=== PATIENT | male | born 2000 | race Two or more races ===

== ENCOUNTER 2025-06-05 16:28 | Emergency (ER) | payer MEDICAID, OTHER ==
[~2025-06-05] VITALS: Ht 177.8 cm; Wt 74.0 kg
--- NOTE | 2025-06-05 16:51 | ED.PDOC ---
History of Present Illness(SKN HPI Comments This is a 24-year-old male that comes in with a rash to the back of his right upper thigh that started four days ago.. Patient states that the rash is slowly been getting bigger and bigger in his very itchy and uncomfortable.. Patient states he is not sure what caused the rash but he has been using Aquaphor and scratching none of it has helped her he decided to come in for evaluations. Denies being any bit by anything, Chief Complaint: Rash Time Seen by MD: 16:43 History of Present Illness: Nurses Notes, Medications, Allergies Information Source: Patient Mode of Arrival: Ambulatory Severity: Mild Past Medical History PAST MEDICAL HISTORY: Denies Social History Smoker: Non-Smoker Alcohol: Denies ETOH Use Drugs: Marijuana Lives In: Home Integumetry: reports: rash All Other Systems: Reviewed and Negative Physical Exam General Appearance: No Apparent Distress, Normal HEENT: Normal ENT Inspection, PERRL/EOMI, Pharynx Normal, TMs Normal Neck: Limited Range of Motion, Non-Tender, Normal Inspection, Supple Respiratory: Lungs Clear, No Respiratory Distress, Normal Breath Sounds Cardiovascular: Regular Rate/Rhythm Breast Exam: Deferred Gastrointestinal: Non Tender, Normal Bowel Sounds, Soft Genitalia: Deferred Pelvic: Deferred Rectal: Deferred Extremities: Normal capillary refill, Normal range of motion Neurologic: Alert, Normal Affect, Normal Mood Cerebellar Function: Normal Reflexes: Normal Skin: Rash Lymphatic: No Adenopathy (Right posterior thigh is a large area with macular papular erythematous rash excoriated skin warm to touch. Now spreading to the arms) Was a procedure done? Was a procedure done?: No Differential Diagnosis (INTG) Differential Diagnosis: Abrasion X-Ray, Labs, Meds, VS Vital Signs Date Time Temp Pulse Resp B/P (MAP) Pulse Ox O2 Delivery O2 Flow Rate FiO2 06/05/25 16:30 98.7 105 20 115/77 96 98.7 X-Ray, Labs, Meds, VS Comment Patient seen and examined by me. Patient does have a rash at now has become cellulitic in nature. It is a large portion of his right leg. I will give him a shot of Decadron followed by prednisone and oral antibiotics. Time of 1ST Reevaluation: 16:54 Reevaluation 1ST: Improved Patient Education/Counseling: Diagnosis, Treatment, Prognosis, Need For Follow Up Family Education/Counseling: No Family Present SEPSIS Sepsis Screen Date sepsis recognized/suspect: Jun 05, 2025 Time Sepsis recognized/suspect: 1632 Recent Procedure: No On Antibiotic Therapy: No Respiratory Rate >20: No Heart Rate >90: Yes Temp<36 C (96.8 F) or >38.3 C: No SBP <90 or MAP <65 mmHG: No New Acute Mental Status Change: No Is the patient on CPAP, BIPAP,: No Vital Signs Date Time Temp Pulse Resp B/P (MAP) Pulse Ox O2 Delivery O2 Flow Rate FiO2 06/05/25 16:30 98.7 105 20 115/77 96 98.7 Departure 1 Departure Time of Disposition: 17:02 Impression: Primary Impression: Cellulitis Additional Impression: Allergic reaction Qualified Codes: T78.40XA - Allergy, unspecified, initial encounter Disposition: HOME / SELF CARE / HOMELESS Condition: Good e-Prescriptions Triamcinolone Acetonide (Triamcinolone Acetonide) 0.1 % Oin 1 APPLIC TOP BID for 10 Days, #454 GRAMS Prov: LAVERNE MEDINAP 06/05/25 Sulfamethoxazole W/Trimethopri (Bactrim Ds Tablet) 1 Tab Tb 1 TAB PO BID for 7 Days, #14 TAB Prov: LAEVRNE MEDINAP 06/05/25 Prednisone (Prednisone) 20 Mg Tab 20 MG PO DAILY@BREAKFAST for 5 Days, #5 MG Prov: LAVERNE MEDINAP 06/05/25 Discharged With: Self Critical Care Note Critical Care Time?: No Stability Stability form required: No LAVERNE MEDINA Jun 05, 2025 16:51
[2025-06-05] MEDS ORDERED: PRED20TA2 PO (16:57)
[2025-06-05] MEDS ORDERED: TRIA0.1O TOP (16:57)
[2025-06-05] MEDS ORDERED: BACDST PO (16:57)
[2025-06-05 17:09] VITALS: BP 115/77; PULSE 105; RESP 20; TEMP 98.7; O2SAT 96
== END 2025-06-05 17:23 | disposition home or self-care (01) ==
LOC: ER 16:28
DX: L03.115 Cellulitis of right lower limb (principal); T78.40XA Allergy, unspecified, initial encounter; X58.XXXA Exposure to other specified factors, initial encounter
CPT/HCPCS: 96372; 99283; J1100